=== PATIENT | female | born 1980 | race Caucasian/White ===

== ENCOUNTER → 2017-01-12 | Outpatient (CLI) | payer MEDICAID ==
[~2017-01-12] MED LIST: ANTIPYRINE & BE10 ML OT; BENZONATATE100 M1 PO; CETIRIZINE HCL10 MG PO; CHANTIX1 TAB PO; CIPRO 500MG TA500 MG PO; CLARITIN 10MG T10 MG PO; CYMBALTA30 MG PO; DARVOCET-N 1001 EACH PO; DICLOFENAC SODI75 M2 PO; FLINTSTONES COM1 CTB PO; FLUTICASONE 50M16 GM; HYOSCYAMINE0.125 MG OR; LEVOFLOXACIN 7750 M1 PO; LIDODERM 5% PA1 EACH TD; LINZESS290 MCG PO; MEDROL 4MG TABLE4 MG PO; MOBIC7.5 MG PO; MONTELUKAST SOD10 MG PO; MOTRIN600 MG PO; NABUMETONE750 MG PO; NEXIUM40 MG PO; NICOTINE T7 MG/24 HR TD; PYRIDIUM 200MG200 MG PO; VENTOLIN H0.09 MG/AC IH; VICODIN 5/500 T1 TAB PO; VOLTAREN75 MG PO; ZITHROMAX Z PA250 MG PO; ZYRTEC10 M2 PO
--- NOTE | 2017-01-12 10:33 | RADIOLOGY REPORT PS360 ---
US RUQ-(ABD LTD)1ORGAN/QUAD/FU HISTORY: Nausea, vomiting, right upper quadrant pain ADENOMYOSIS,GALLBLADDER ORDERING PHYSICIAN: CHANDRAKANT ROBERSON PATIENT AGE: 36 years COMPARISON: None FINDINGS: PANCREAS:Unremarkable. No obvious mass or abnormal fluid collection. No ductal dilatation LIVER:No focal liver lesions demonstrated. Homogeneous echogenicity. No intrahepatic biliary ductal dilatation evident RIGHT KIDNEY:Unremarkable. Normal size and echogenicity. No hydronephrosis Gallbladder: There remains a small area of increased echogenicity noted along the anterior gallbladder wall with common tail artifact as before consistent with adenomyomatosis. No shadowing stones, pericholecystic fluid, or biliary dilatation. No gallbladder wall thickening. Common bile duct is normal at 4 mm. IMPRESSION: 1. Overall no change from 11/19/2015. 2. Adenomyomatosis of the gallbladder. 3. No shadowing stones evident.
== END ==
LOC: RAD 01-07 10:00
DX: K82.8 Other specified diseases of gallbladder (principal)

== ENCOUNTER 2017-04-28 13:16 | Day surgery (SDC) | payer MEDICAID ==
[~2017-04-28] VITALS: Ht 160 cm; Wt 82.6 kg
[2017-04-28 13:17] VITALS: BP 143/93
[2017-04-28] MEDS ORDERED: ZOFRAN4 MG PO (13:25)
[2017-04-28] MEDS ORDERED: PROMETHAZINE HC25 M1 PO (13:25)
[2017-04-28 13:51] VITALS: BP 143/93
[2017-04-28 13:52] VITALS: BP 147/96
--- NOTE | 2017-04-28 14:02 | Procedure Note ---
Procedure detail Date of procedure: 04/28/17 Anesthesiologist: Erasmo Caballero Complications: None Pre-procedure diagnosis: Degenerative disease lumbar spine multiple levels. Lumbar radiculopathy symptoms. Post-procedure diagnosis: Same. Indications for procedure: Very pleasant 36-year-old white female the comes for procedure clinic today for lumbar epidural steroid injection L4-5 level. Patient status post one lumbar epidural steroid injection with significant relief in terms her low back pain as well as bilateral hip and leg pain. Procedure detail: Procedure: Lumbar epidural steroid injection under fluoroscopy Informed consent was obtained and the risks and benefits of the procedure were explained to the patient. The patient was taken to the procedure room and noninvasive monitors placed, including noninvasive blood pressure cuff and pulse oximeter. The back was viewed using C-arm Fluoroscopy and prepped using Betadine as a cleansing solution and the L4-L5 interspace was palpated. Skin and subcutaneous tissues were anesthetized using lidocaine 1.5% and a 25-gauge needle. After this, an 18-gauge Touhy epidural needle was placed into the L4-L5 interspace and advanced using fluoroscopic guidance and loss of resistance to air until the epidural space was encountered. After confirmation of needle placement in the epidural space, with dye, a solution containing lidocaine 1.5%, 4 mL and Depo-Medrol 80 mg were incrementally injected into the lumbar epidural space. The patient tolerated the procedure well with no complications. The patient was observed in the Pain Clinic and then discharged home neurologically intact. Plan and disposition: Patient was evaluated 10 minutes post procedure. She is doing very well. Short- term see some pain clinic further evaluation. at [id number]
[2017-04-28 14:04] VITALS: BP 128/87
== END 2017-04-28 14:05 | disposition home or self-care (01) ==
LOC: PM 13:16
PROC: 3E0R3BZ Introduction of Anesthetic Agent into Spinal Canal, Percutaneous Approach (ICD-10-PCS; principal; 2017-04-28)
PROC: 3E0R33Z Introduction of Anti-inflammatory into Spinal Canal, Percutaneous Approach (ICD-10-PCS; 2017-04-28)
PROC: B01B1ZZ Fluoroscopy of Spinal Cord using Low Osmolar Contrast (ICD-10-PCS; 2017-04-28)
DX: M51.16 Intervertebral disc disorders with radiculopathy, lumbar region (principal)
CPT/HCPCS: J1040; Q9966

== ENCOUNTER → 2017-06-02 | Day surgery (SDC) | payer MEDICAID ==
[~2017-06-02] VITALS: Ht 160 cm; Wt 83.5 kg
[~2017-06-02] MED LIST changes: +PROMETHAZINE HC25 M1 PO; +ZOFRAN4 MG PO
[2017-06-02 13:48] VITALS: BP 119/95; BP 134/101
[2017-06-02 14:43] VITALS: BP 119/95
[2017-06-02 14:46] VITALS: BP 163/100
--- NOTE | 2017-06-02 14:51 | Procedure Note ---
Procedure detail Date of procedure: 06/02/17 Anesthesiologist: Erasmo Caballero Complications: None Pre-procedure diagnosis: Degenerative disc disease lumbar spine multiple levels. Lumbar spondylosis. Post-procedure diagnosis: Same. Indications for procedure: Very pleasant 36-year-old white female that has responded moderately well to lumbar epidural steroid injections at L4-5 level. Patient has degenerative disc disease with some lumbar spondylosis and lumbar facet arthropathy. Today we will move towards medial branch block L3-4, L4-5, L5-S1 bilateral. Procedure detail: Informed consent was obtained and the risk and benefits of the procedure was explained to the patient. Patient was taken to the procedure room where noninvasive monitors were placed, including noninvasive blood pressure cuff as well as pulse oximeter. The area over the lumbar spine was cleansed using chlorhexidine as a cleansing solution. I anesthetized the skin and subcutaneous tissues with 1% Lidocaine. I placed 22-gauge spinal needles into the facet joint / medial branches of [L3-L4, L4-L5, and L5-S1] bilaterally. Needle placement was confirmed with fluoroscopy. After confirmation of needle placement, each site was injected with 1 mL of 1% lidocaine and 0.25 % Marcaine and 10 mg of Depo- Medrol. A total of 80 mg of depo medrol was used for bilateral medial branch blocks of [L3-L4, L4-L5, and L5-S1] bilaterally. Patient tolerated the procedure without difficulty. There were no complications. Plan and disposition: Patient was reevaluated 10 minutes post procedure. She reports 70 percent improvement terms of her lumbar back pain in flexion, extension, LEFT and RIGHT rotation. at [id number]
[2017-06-02 14:57] VITALS: BP 150/88
== END ==
LOC: PM 13:00
PROC: 3E0T33Z Introduction of Anti-inflammatory into Peripheral Nerves and Plexi, Percutaneous Approach (ICD-10-PCS; principal; 2017-06-02)
PROC: 3E0T3BZ Introduction of Anesthetic Agent into Peripheral Nerves and Plexi, Percutaneous Approach (ICD-10-PCS; 2017-06-02)
PROC: BR161ZZ Fluoroscopy of Lumbar Facet Joint(s) using Low Osmolar Contrast (ICD-10-PCS; 2017-06-02)
DX: M51.36 Other intervertebral disc degeneration, lumbar region (principal); M47.896 Other spondylosis, lumbar region
CPT/HCPCS: J1040